=== PATIENT | female | born 1945 | race Caucasian/White ===

== ENCOUNTER 2024-05-20 10:30 | Outpatient (RCR) | payer MEDICARE, SELFPAY | END 2024-06-30 10:19 | disposition home or self-care (01) | LOC: ANHDMC 10:30 | PROVIDERS: PCP Family Medicine Sports Medicine; Visit Provider Internal Medicine | DX: E11.65 Type 2 diabetes mellitus with hyperglycemia (principal); Z71.89 Other specified counseling | CPT/HCPCS: G0108 ==